=== PATIENT | male | born 1930 | race Caucasian/White ===

== ENCOUNTER → 2017-06-05 | Outpatient (CLI) | payer MEDICARE ==
--- NOTE | 2017-06-05 19:24 | PCVCIMAG ---
EXAM: BILATERAL LOWER EXTREMITY ARTERIAL DUPLEX INDICATION: Peripheral Arterial Disease. Leg pain. FINDINGS: Right Leg: Satisfactory arterial waveforms in the common femoral and profunda femoral artery. Increased systolic velocity distal superficial femoral artery of 347 cm/s with elevated velocity of 338 cm/s in the mid popliteal artery consistent with areas of 80% stenosis. The mid/distal posterior tibial arteries occluded. The peroneal artery and anterior tibial artery are patent. Left Leg: The common femoral artery and profunda femoral artery are patent. Increased systolic velocity of 468 cm/s mid/distal superficial femoral artery consistent with 90% stenosis. The popliteal artery is patent. The mid/distal posterior tibial artery is occluded. The anterior tibial and peroneal arteries are patent. IMPRESSION: 80% stenosis distal right superficial femoral artery and mid right popliteal artery. 90% stenosis mid/distal left superficial femoral artery. 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 LOC:[id number]
== END | disposition home or self-care (01) ==
LOC: PCVCIMAG 14:25
PROVIDERS: ATTEND Emergency Medicine
DX: I73.9 Peripheral vascular disease, unspecified (principal); L97.929 Non-pressure chronic ulcer of unspecified part of left lower leg with unspecified severity; L97.919 Non-pressure chronic ulcer of unspecified part of right lower leg with unspecified severity; I77.1 Stricture of artery
CPT/HCPCS: 93925

== ENCOUNTER → 2017-06-08 | Outpatient (CLI) | payer MEDICARE ==
[~2017-06-08] MED LIST: DIAZEPAM 10 MG TABLET. ONE; EPINEPHrine 1 MG/ML VIAL ONE; EPTIFIBATIDE BOLUS 2,000 MCG/ML 10ML VIAL. IV ONE; HEPARIN SODIUM 5,000 UNIT/ML VIAL for PCVC. ONE; IODIXANOL 270 MG/ML 100 ML VIAL. ONE; IV NORMAL SALINE 1000ML BAG 1,000 ML ONE; LIDOCAINE 1% Multi-Dose 20 ML VIAL. ONE; MIDAZOLAM HCL/PF 2 MG/2 ML VIAL. ONE; NITROGLYCERIN PREMIX 250 ML IV ONE; fentaNYL PF VIAL 100 MCG/2 ML VIAL ONE; hydrALAZINE 20 MG/ML VIAL. ONE
--- NOTE | 2017-06-08 11:36 | PCVCINTER ---
EXAM: 1. AORTOGRAM AND BILATERAL LOWER EXTREMITY RUNOFF ANGIOGRAM 2. BILATERAL RENAL ANGIOGRAPHY 3. LEFT SUPERFICIAL FEMORAL ARTERY ATHERECTOMY AND STENT PLACEMENT. 4. SECONDARY THROMBECTOMY LEFT SUPERFICIAL FEMORAL ARTERY. 5. DRUG COATED BALLOON ANGIOPLASTY LEFT SUPERFICIAL FEMORAL ARTERY. INDICATION: Peripheral arterial disease. Coronary artery disease. Bilateral lower extremity pain. Previous bilateral lower extremity ulcers. Hypertension. Renal atherosclerosis. PROCEDURE: Procedure and risks of angiography intervention is appropriate including limb loss stroke and were discussed with the patient's family and consent obtained. The patient's right groin was prepped abnormal sterile fashion. IV conscious sedation was used to procedure with appropriate monitoring from 8:30 AM through 10:15 AM. Ultrasound was used to interrogate the right groin and showed the right common femoral artery to be patent. A permanent spot film was obtained. Under ultrasound guidance access into the right common femoral artery was obtained and a 5 Estonian sheath was placed. Through this a 5 Estonian flush catheter was placed into the abdominal aorta at the level of the renal arteries and AP aortogram was performed. Catheter was positioned at the aortic bifurcation and both oblique views of the pelvis were obtained. Catheter was positioned into the right external iliac artery and right leg runoff angiography was performed. Catheter was exchanged for a visceral catheter was placed into the right renal arteries and right renal angiograms obtained. Catheter was placed into the the left renal arteries and left renal angiograms were obtained. Catheter was advanced to the level of the left external iliac artery and left leg runoff angiography was obtained. Patient was given 4500 units of heparin. A 6 Estonian crossover sheath was placed via the right groin to the level of the left common femoral artery. Atherectomy of the left superficial femoral artery was performed with 2.0 mm SpectranetPitchEngine laser atherectomy catheter in the standard fashion. Following atherectomy small areas of thrombus were observed and because of this secondary thrombectomy throughout the left superficial femoral artery was carried out with mechanical suction thrombectomy catheter in the standard fashion. Minimal debris was removed. Stent placement across the areas of high-grade stenosis in the left superficial femoral artery was carried out with a 8 x 100 and 8 x 150 Smart control stents with subsequent dilatation to 6.0 mm. Following this drug coated balloon angioplasty of the left superficial femoral artery was carried out with a 6 x 120, 6 x 120, and 6 x 40 Spectranetics Stellerex [employer] catheters. Follow-up angiogram was performed. Catheters and wires removed. Sheath was removed and hemostasis obtained using the FISH device. No immediate complications. FINDINGS: Aortogram: There is one right and one left renal artery. Moderate plaque infrarenal abdominal aorta without significant stenosis. Pelvis: Moderate plaque in the right and left common and external iliac arteries without significant stenosis. The right and left common femoral and profunda femoral arteries are patent. Right renal artery: Mild plaque proximal vessel does not cause significant stenosis. Left renal artery: Mild plaque proximal vessel does not cause significant stenosis. Right leg: Moderate diffuse plaque throughout the superficial femoral artery with areas of 80-90% stenosis in the mid/distal vessel. 90% smooth tapered stenosis throughout the mid/upper popliteal artery. Mid/lower popliteal artery is patent. The posterior tibial arteries occluded. Peroneal artery is small but patent. The anterior tibial artery is a dominant runoff vessel to runoff into the dorsalis pedis. Left leg: Several areas in 90% stenosis in the mid/upper and mid superficial femoral artery. Distal most superficial femoral artery and popliteal artery show good patency. The posterior tibial artery is occluded. Mild stenosis proximal anterior tibial artery. The peroneal and anterior tibial arteries otherwise show satisfactory patency. R dorsalis pedis. Left superficial femoral artery: Following procedure as above vessel shows good patency. IMPRESSION: Areas of high-grade stenosis throughout the left superficial femoral artery were treated as above with good patency restored. Areas of high-grade stenosis in the right superficial femoral artery and right popliteal artery as detailed above. 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 Patient will return in the near future for intervention to the right leg. LOC:[id number]
== END | disposition home or self-care (01) ==
LOC: PCVCINTER 07:42
PROVIDERS: ATTEND Nuclear Medicine Nuclear Cardiology
DX: I70.213 Atherosclerosis of native arteries of extremities with intermittent claudication, bilateral legs (principal); I25.10 Atherosclerotic heart disease of native coronary artery without angina pectoris; I70.1 Atherosclerosis of renal artery; I10 Essential (primary) hypertension
CPT/HCPCS: 36252; 37186; 37227; 75716; 76937; 99152; 99153; C1725; C1751; C1757; C1760; C1769; C1876; C1885; C1887; C1894; C2623; J0171; J0360; J1327; J1644; J2250; J3010; J3490; J7030; Q9966

== ENCOUNTER → 2017-06-18 | Outpatient (CLI) | payer MEDICARE ==
[~2017-06-18] MED LIST changes: +IV NORMAL SALINE 1000ML BAG 0 ML ONE
--- NOTE | 2017-06-18 10:33 | PCVCINTER ---
EXAM: 1. RIGHT SUPERFICIAL FEMORAL ARTERY AND POPLITEAL ARTERY ATHERECTOMY AND STENT PLACEMENT. 2. SECONDARY THROMBECTOMY RIGHT SUPERFICIAL FEMORAL ARTERY AND POPLITEAL ARTERY. 3. DRUG COATED BALLOON ANGIOPLASTY RIGHT SUPERFICIAL FEMORAL ARTERY AND POPLITEAL ARTERY. INDICATION: Peripheral arterial disease. Coronary artery disease. Right lower extremity pain. Hypertension. Renal atherosclerosis. PROCEDURE: Procedure and risks of angiography intervention is appropriate including limb loss stroke and were discussed with the patient's family and consent obtained. The patient's left groin was prepped abnormal sterile fashion. IV conscious sedation was used to procedure with appropriate monitoring 8:30 through 10:15 AM. Ultrasound was used to interrogate the left groin and showed the left common femoral artery to be patent. A permanent spot film was obtained. Under ultrasound guidance access into the left common femoral artery was obtained and a 6 German crossover sheath was placed via the left groin to the level of the right common femoral artery. 4500 units of heparin were given IV. Atherectomy of the right superficial femoral artery and popliteal artery was performed with 2.0 mm Spectranet360pi laser atherectomy catheter in the standard fashion. Following atherectomy small areas of thrombus were observed and because of this secondary thrombectomy throughout the right superficial femoral artery and popliteal artery was carried out with mechanical suction thrombectomy catheter in the standard fashion. Minimal debris was removed. Stent placement across the areas of high-grade stenosis in the right popliteal artery was carried out with a 8 x 150 Smart control stent with subsequent dilatation to 6.0 mm. Following this drug coated balloon angioplasty of the right popliteal artery was carried out with a 6 x 120 and 6 x 40 Spectranetics Stellarex HOGSHEAD WEIGHER catheter. Stent placement across the areas of high-grade stenosis in the right superficial femoral artery was carried out with a 8 x 80 and 8 x 120 Smart control stents with subsequent dilatation to 6.0 mm. Following this drug coated balloon angioplasty of the right superficial femoral artery was carried out with a 6 x 120 and 6 x 120 Spectranetics Stellarex HOGSHEAD WEIGHER catheter. Follow-up angiogram was performed. Catheters and wires removed. Sheath was removed and hemostasis obtained using the FISH device. No immediate complications. FINDINGS: Right superficial femoral artery: Following procedure as above vessel shows good patency. Right popliteal artery: Following procedure as above vessel shows satisfactory patency. IMPRESSION: Areas of high-grade stenosis of the right superficial femoral artery and mid and upper right popliteal artery were treated as above with satisfactory patency restored. LOC:[id number]
== END | disposition home or self-care (01) ==
LOC: PCVCINTER 07:24
PROVIDERS: ATTEND Nuclear Medicine Nuclear Cardiology
DX: I70.211 Atherosclerosis of native arteries of extremities with intermittent claudication, right leg (principal); I25.10 Atherosclerotic heart disease of native coronary artery without angina pectoris; I70.1 Atherosclerosis of renal artery; I10 Essential (primary) hypertension
CPT/HCPCS: 37186; 37227; 76937; 99152; 99153; C1725; C1751; C1757; C1760; C1769; C1876; C1885; C1887; C1894; C2623; J0171; J0360; J1327; J1644; J2250; J3010; J3490; J7030; J0690

== ENCOUNTER → 2017-10-24 | Outpatient (CLI) | payer MEDICARE | END | disposition home or self-care (01) | LOC: PCVCIMAG 14:37 | DX: I65.23 Occlusion and stenosis of bilateral carotid arteries (principal); I73.9 Peripheral vascular disease, unspecified; I25.10 Atherosclerotic heart disease of native coronary artery without angina pectoris; I10 Essential (primary) hypertension; I77.9 Disorder of arteries and arterioles, unspecified; E11.8 Type 2 diabetes mellitus with unspecified complications; G21.9 Secondary parkinsonism, unspecified; E78.00 Pure hypercholesterolemia, unspecified; I87.2 Venous insufficiency (chronic) (peripheral); Z79.4 Long term (current) use of insulin; Z87.891 Personal history of nicotine dependence; Z79.899 Other long term (current) drug therapy | CPT/HCPCS: 93880; 93925; G0463 ==